=== PATIENT | male | born 1945 | race Caucasian/White ===

== ENCOUNTER 2018-03-06 08:10 | Inpatient (IN) | payer MEDICARE ==
[~2018-03-06] VITALS: Ht 182.9 cm; Wt 89.0 kg
[~2018-03-06 08:10] MED LIST: AMLO2.5T PO; ASPI-496 PO; ATOR20TA9 PO; CALC-126 PO; CALC625T68 PO; CYAN25003 SL; CYAN25009 PO; CYCL-259 PO; CYCL5TAB PO; FINA5TAB4 PO; FLUN25SP NS; HYDR-3237 PO; HYDR-3307 PO; LACT1CAP35 PO; MULT-658 PO; NITR0.4T28 SL; OMEG1CAP6 PO; OMEP-110 PO; POTA10TA11 PO; POTA10TA5 PO; TAMS-11 PO; TAMS0.4C2 PO; VALE445C2 PO; VITA150T PO; VITA400C43 PO
[2018-03-06] MEDS ORDERED: MECLIZINE CHEWABLE 25 MG TAB ONE (08:59)
[2018-03-06] MEDS ORDERED: MECLIZINE CHEWABLE 25 MG TAB PO ONE ×2 (09:00→13:00)
[2018-03-06 09:30] LABS: BASOPHILS # (AUTO) 0.02 x10^3/uL (0-0.1); BASOPHILS % (AUTO) 0 % (0-1); EOSINOPHILS # (AUTO) 0.02 x10^3/uL (0-0.4); EOSINOPHILS % (AUTO) 0 % (1-7); LYMPHOCYTES # (AUTO) 0.83 x10^3/uL (1-3.4); LYMPHOCYTES % (AUTO) 13 % (22-44); MD NO; MEAN CORPUSCULAR HGB CONC 33.5 g/dL (33.2-36.2); MEAN CORPUSCULAR VOLUME 95.3 fL (81-97); MEAN PLATELET VOLUME 8.8 fL (7.4-10.4); MONOCYTES # (AUTO) 0.44 x10^3/uL (0.2-0.8); MONOCYTES % (AUTO) 7 % (2-9); NEUTROPHILS # (AUTO) 5.16 x10^3/uL (1.8-6.8); NEUTROPHILS % (AUTO) 80 % (42-75); PLATELET COUNT 222 x10^3/uL (130-400); RED BLOOD COUNT 5.12 x10^6/uL (4.38-5.82); RED CELL DISTRIBUTION WIDTH 13.1 % (9.4-14.8)
[2018-03-06 09:43] LABS: ALANINE AMINOTRANSFERASE 32 U/L (12-78); ALBUMIN 4.1 g/dL (3.4-5.0); ANION GAP 7 mmol/L (5-15); CALCIUM 8.7 mg/dL (8.5-10.1); CHLORIDE 107 mmol/L (98-107); CREATININE 0.93 mg/dL (0.7-1.3)
[2018-03-06 09:48] LABS: ALKALINE PHOSPHATASE 61 U/L (45-117); TOTAL PROTEIN 7.2 g/dL (6.4-8.2); TROPONIN I < 0.015 ng/mL (0.000-0.045)
[2018-03-06] MEDS ORDERED: OMNIPAQUE 350 MG/ML, 100ML BOTTLE ONE (10:51)
[2018-03-06] MEDS ORDERED: ONDANSETRON 2MG/ML, 2ML IVPush PRN (13:30)
[2018-03-06] MEDS ORDERED: morphine SULFATE 10 MG/ML, 1ML IVPush PRN (13:30)
[2018-03-06] MEDS ORDERED: ACETAMINOPHEN 325 MG TABLET PO PRN (13:30)
[2018-03-06 14:05] LABS: FREE T4 (FREE THYROXINE) 0.82 ng/dL (0.76-1.46); THYROID STIMULATING HORMONE 1.02 mIU/L (0.358-3.740)
[2018-03-06 15:01] VITALS: BP 154/90
[2018-03-06] MEDS: POTASSIUM CHLORIDE 20 MEQ TAB.ER.PRT PO SCH (17:02)
[2018-03-06] MEDS: AMLODIPINE 2.5 MG TABLET PO SCH (17:03)
[2018-03-06] MEDS: HYDROcodone/APAP 5/325 TABLET PO SCH ×3 (17:04→21:37)
[2018-03-06] MEDS: CALCIUM/VITAMIN D3 250-125 TABLET PO SCH (17:04)
[2018-03-06] MEDS: FLUNISOLIDE NS SCH (17:04)
[2018-03-06] MEDS: CYCLOBENZAPRINE 10 MG TABLET PO SCH (17:04)
[2018-03-06] MEDS: CYANOCOBALAMIN 1,000 MCG TABLET PO SCH (17:04)
[2018-03-06] MEDS: MULTIVITAMIN 1 TABLET PO SCH (17:05)
[2018-03-06] MEDS: ENOXAPARIN 40 MG/0.4 ML SQ SCH (17:05)
[2018-03-06] MEDS: NITROGLYCERIN 0.4 MG BOTTLE (25 TABS) SL SCH ×2 (17:05→21:38)
[2018-03-06] MEDS: ASPIRIN 81 MG TABLET EC PO SCH (17:05)
[2018-03-06] MEDS: FINASTERIDE 5 MG TABLET PO SCH (17:05)
[2018-03-06] MEDS: LACTOBACILLUS CHEW TABLET PO SCH (17:05)
[2018-03-06] MEDS: MULTIVITS,STRESS FORMULA 1 TABLET PO SCH (17:05)
[2018-03-06] MEDS: OMEPRAZOLE 20 MG CAPSULE.DR PO SCH (17:06)
[2018-03-06 18:59] VITALS: BP 125/78
[2018-03-06 19:00] VITALS: BP 125/78
[2018-03-06 20:42] LABS: MICROSCOPIC NOT IND
[2018-03-06 20:48] LABS: CULTURE INDICATED? NO
[2018-03-06] MEDS: OMEGA-3/FISH OIL CAPSULE PO SCH (21:00)
[2018-03-06] MEDS: TAMSULOSIN 0.4 MG CAP.ER.24H PO SCH (21:37)
[2018-03-06] MEDS: MECLIZINE CHEWABLE 25 MG TAB PO PRN (21:37)
[2018-03-06] MEDS: ATORVASTATIN 20 MG TABLET PO SCH (21:37)
[2018-03-07 02:16] VITALS: BP 96/61
[2018-03-07] MEDS: HYDROcodone/APAP 5/325 TABLET PO SCH ×5 (06:00→22:13)
[2018-03-07 06:53] VITALS: BP 102/66
[2018-03-07] MEDS: OMEGA-3/FISH OIL CAPSULE PO SCH ×2 (09:00→21:00)
[2018-03-07] MEDS: MULTIVITAMIN 1 TABLET PO SCH (09:00)
[2018-03-07] MEDS: POTASSIUM CHLORIDE 20 MEQ TAB.ER.PRT PO SCH (09:45)
[2018-03-07] MEDS: ASPIRIN 81 MG TABLET EC PO SCH (09:45)
[2018-03-07] MEDS: TAMSULOSIN 0.4 MG CAP.ER.24H PO SCH ×2 (09:45→22:13)
[2018-03-07] MEDS: FINASTERIDE 5 MG TABLET PO SCH (09:46)
[2018-03-07] MEDS: AMLODIPINE 2.5 MG TABLET PO SCH (09:46)
[2018-03-07] MEDS: OMEPRAZOLE 20 MG CAPSULE.DR PO SCH (09:47)
[2018-03-07] MEDS: MECLIZINE CHEWABLE 25 MG TAB PO PRN ×3 (09:48→23:23)
[2018-03-07] MEDS: MULTIVITS,STRESS FORMULA 1 TABLET PO SCH (09:49)
[2018-03-07] MEDS: CYCLOBENZAPRINE 10 MG TABLET PO SCH (09:49)
[2018-03-07] MEDS: LACTOBACILLUS CHEW TABLET PO SCH (09:49)
[2018-03-07] MEDS: CYANOCOBALAMIN 1,000 MCG TABLET PO SCH (09:49)
[2018-03-07] MEDS: FLUNISOLIDE NS SCH (14:09)
[2018-03-07 15:44] VITALS: BP 116/76
[2018-03-07] MEDS: ENOXAPARIN 40 MG/0.4 ML SQ SCH (16:00)
[2018-03-07] MEDS ORDERED: OMEPRAZOLE 20 MG CAPSULE.DR PO SCH (16:30)
[2018-03-07 19:52] VITALS: BP 102/66
[2018-03-07] MEDS ORDERED: CYCLOBENZAPRINE 10 MG TABLET PO SCH (21:30)
[2018-03-07] MEDS: ATORVASTATIN 20 MG TABLET PO SCH (22:13)
[2018-03-08 03:31] VITALS: BP 104/71
[2018-03-08 03:32] VITALS: BP 104/71
[2018-03-08 07:55] VITALS: BP 117/61
[2018-03-08 07:56] VITALS: BP 117/67
[2018-03-08] MEDS: HYDROcodone/APAP 5/325 TABLET PO SCH (08:00)
[2018-03-08] MEDS: ASPIRIN 81 MG TABLET EC PO SCH (08:36)
[2018-03-08] MEDS: OMEGA-3/FISH OIL CAPSULE PO SCH (08:36)
[2018-03-08] MEDS: MULTIVITS,STRESS FORMULA 1 TABLET PO SCH (08:37)
[2018-03-08] MEDS: LACTOBACILLUS CHEW TABLET PO SCH (08:37)
[2018-03-08] MEDS: CALCIUM/VITAMIN D3 250-125 TABLET PO SCH (08:37)
[2018-03-08] MEDS: MULTIVITAMIN 1 TABLET PO SCH (08:37)
[2018-03-08] MEDS: CYANOCOBALAMIN 1,000 MCG TABLET PO SCH (08:38)
[2018-03-08] MEDS ORDERED: MIDAZOLAM 1 MG/ML, 5ML ONE (12:43)
[2018-03-08] MEDS ORDERED: FENTANYL PF 100 MCG/2ML ONE (12:43)
[2018-03-08] MEDS ORDERED: GADOBUTROL 10 MMOL/10 ML PFS ONE (13:25)
[2018-03-08] MEDS ORDERED: MECL-85 PO (13:54)
== END 2018-03-08 15:59 | disposition home or self-care (01) | DRG 149 ==
LOC: ED 09:04 → SUATTDRO 12:38 → EDIP 13:23 → 3NE 14:55
PROVIDERS: ADMIT Internal Medicine; ATTEND Internal Medicine
DX: R42 Dizziness and giddiness (principal); Z82.49 Family history of ischemic heart disease and other diseases of the circulatory system; I10 Essential (primary) hypertension; K21.9 Gastro-esophageal reflux disease without esophagitis; G62.9 Polyneuropathy, unspecified; G89.29 Other chronic pain; M54.9 Dorsalgia, unspecified; N40.0 Benign prostatic hyperplasia without lower urinary tract symptoms; Z80.51 Family history of malignant neoplasm of kidney; Z80.42 Family history of malignant neoplasm of prostate
CPT/HCPCS: 36415; 70450; 70498; 70553; 71045; 80053; 81003; 84439; 84443; 84484; 85025; 93005; 99156; 99157; 99285; A9585; J2250; J3010; Q9967

== ENCOUNTER → 2018-09-09 | Outpatient (CLI) | payer MEDICARE ==
[~2018-09-09] MED LIST changes: -AMLO2.5T PO; +AMLO2.5T3 PO; +ATOR20TA37 PO; -ATOR20TA9 PO; +CALC-118 PO; +CARB15DR59 EACHEYE; +CYAN25009 SL; +FISH1CAP PO; +FLUN25SP NAS; +LACT1CAP64 PO; +MECL-85 PO; +MULT-6 PO; +OMEP40CA6 PO; +POTA20PA25 PO; +PROP15DR EACHEYE; +VITA100C8 PO; +VITA1CAP7 PO
== END | disposition home or self-care (01) ==
LOC: STAR 13:05
PROVIDERS: ATTEND Surgery
DX: Z02.9 Encounter for administrative examinations, unspecified (principal)

== ENCOUNTER 2018-10-06 06:55 | Day surgery (SDC) | payer MEDICARE ==
[~2018-10-06] VITALS: Ht 182.9 cm; Wt 90.5 kg
[~2018-10-06 06:55] MED LIST changes: -AMLO2.5T3 PO; +AMLO2.5T5 PO; +BUPIVACAINE/PF-EPI 0.5% 1:200K ONE
[2018-10-06] MEDS ORDERED: LACTATED RINGERS 1,000 ML IV SCH (07:33)
[2018-10-06] MEDS ORDERED: GABAPENTIN 300 MG CAPSULE PO ONE (08:00)
[2018-10-06] MEDS ORDERED: ACETAMINOPHEN 500 MG TABLET PO ONE (08:00)
[2018-10-06 08:03] VITALS: BP 127/87
[2018-10-06] MEDS ORDERED: GLYCOPYRROLATE 0.2MG/1ML, 5ML ONE (08:26)
[2018-10-06] MEDS ORDERED: NEOSTIGMINE 1 MG/ML, 10ML ONE (08:26)
[2018-10-06] MEDS ORDERED: PROPOFOL 10 MG/ML, 20ML ONE (08:26)
[2018-10-06] MEDS ORDERED: CEFAZOLIN 1,000 MG ONE (08:26)
[2018-10-06] MEDS ORDERED: ROCURONIUM 10MG/ML,5ML ONE (08:26)
[2018-10-06] MEDS ORDERED: BUPIVACAINE/PF-EPI 0.5% 1:200K ONE (09:00)
[2018-10-06] MEDS ORDERED: FENTANYL PF 250 MCG/5ML ONE (09:20)
[2018-10-06] MEDS ORDERED: MIDAZOLAM 1 MG/ML, 2ML ONE (09:20)
[2018-10-06] MEDS ORDERED: ONDANSETRON ODT 8 MG PO PRN (09:30)
[2018-10-06] MEDS ORDERED: PROMETHAZINE 25 MG/ML, 1ML IM PRN ×2 (09:30)
[2018-10-06] MEDS ORDERED: MORPHINE SULFATE 4 MG/ML, 1ML IVPush PRN (09:30)
[2018-10-06] MEDS ORDERED: PROMETHAZINE 25 MG/ML, 1ML IV PRN (09:30)
[2018-10-06] MEDS ORDERED: OXYcodone 5 MG/5 ML ORAL.SOL UDC PO PRN (09:30)
[2018-10-06] MEDS ORDERED: PROMETHAZINE 12.5 MG SUPP PR PRN (09:30)
[2018-10-06] MEDS ORDERED: PROMETHAZINE 25 MG SUPP PR PRN (09:30)
[2018-10-06] MEDS ORDERED: LABETALOL 5MG/ML, 20ML IV PRN (09:30)
[2018-10-06] MEDS ORDERED: ONDANSETRON 2MG/ML, 2ML IV PRN (09:30)
[2018-10-06] MEDS ORDERED: FENTANYL PF 100 MCG/2ML IV PRN (09:30)
[2018-10-06] MEDS ORDERED: hydrALAzine 20 MG/ML, 1ML IV PRN (09:30)
[2018-10-06] MEDS ORDERED: MEPERIDINE/PF 25MG/0.5ML IVPush PRN (09:30)
[2018-10-06] MEDS ORDERED: HYDROmorphone 2 MG/ML, 1ML IVPush PRN (09:30)
[2018-10-06] MEDS ORDERED: ONDANSETRON 2MG/ML, 2ML ONE (09:46)
[2018-10-06] MEDS ORDERED: DEXAMETHASONE 4 MG/ML, 1ML ONE ×2 (09:46)
[2018-10-06] MEDS ORDERED: KETOROLAC 30 MG/1 ML ONE (09:47)
[2018-10-06] MEDS ORDERED: FENTANYL PF 100 MCG/2ML ONE ×2 (10:39→11:17)
[2018-10-06] MEDS ORDERED: OXYcodone 5 MG/5 ML ORAL.SOL UDC ONE (11:17)
[2018-10-06] MEDS ORDERED: OXYcodone/APAP 5/325MG TABLET ONE (15:47)
[2018-10-06] MEDS ORDERED: OXYcodone/APAP 5/325MG TABLET PO PRN (16:00)
== END 2018-10-06 18:40 | disposition home or self-care (01) ==
LOC: OUT 06:55
PROVIDERS: ATTEND Surgery
DX: K40.91 Unilateral inguinal hernia, without obstruction or gangrene, recurrent (principal); K40.90 Unilateral inguinal hernia, without obstruction or gangrene, not specified as recurrent; I10 Essential (primary) hypertension; E78.5 Hyperlipidemia, unspecified; Z88.1 Allergy status to other antibiotic agents; Z88.8 Allergy status to other drugs, medicaments and biological substances; Z98.890 Other specified postprocedural states; Z87.39 Personal history of other diseases of the musculoskeletal system and connective tissue; Z85.828 Personal history of other malignant neoplasm of skin
CPT/HCPCS: 49650; 49651; C1781; J0690; J1100; J1885; J2250; J2405; J2704; J2710; J3010; J3490; J7120

== ENCOUNTER 2018-10-10 17:25 | Emergency (ER) | payer MEDICARE ==
[~2018-10-10] VITALS: Ht 182.9 cm; Wt 92.2 kg
[~2018-10-10 17:25] MED LIST changes: -BUPIVACAINE/PF-EPI 0.5% 1:200K ONE
--- NOTE | 2018-10-10 17:41 | NUR ---
PT STATED THAT HE HAD DOUBLE HERNIA SURGERY ON THURSDAY AND NOW IS HAVING TROUBLE URINATING AND BMS. URINATING A LITTLE EVERY 20 MINUTES, BURNING WITH URINATION AND RIGHT FLANK PAIN. C/O LEAKING BM EVERY 20 MINUTES. REPORTS BEING SWEATY, WHITE, AND WEAK. PT IS ALERT, ORIENTED, WITH NAD. PT IS CONNECTED TO THE MONITOR. CALL LIGHT WITHIN REACH.
--- NOTE | 2018-10-10 18:28 | NUR ---
POST PLACED, 1100 URINE DRAINED INTO POST BAG.
[2018-10-10 18:37] LABS: MICROSCOPIC INDICATED
[2018-10-10 18:40] LABS: ALBUMIN 4.2 g/dL (3.4-5.0); ANION GAP 9 mmol/L (5-15); CALCIUM 9.4 mg/dL (8.5-10.1); CHLORIDE 106 mmol/L (98-107); CREATININE 0.95 mg/dL (0.7-1.3)
[2018-10-10 18:41] LABS: BASOPHILS # (AUTO) 0.02 x10^3/uL (0-0.1); BASOPHILS % (AUTO) 0 % (0-1); EOSINOPHILS # (AUTO) 0.18 x10^3/uL (0-0.4); EOSINOPHILS % (AUTO) 2 % (1-7); LYMPHOCYTES # (AUTO) 0.84 x10^3/uL (1-3.4); LYMPHOCYTES % (AUTO) 10 % (22-44); MD NO; MEAN CORPUSCULAR HEMOGLOBIN 32.6 pg (27.5-34.5); MEAN CORPUSCULAR HGB CONC 33.8 g/dL (33.2-36.2); MEAN CORPUSCULAR VOLUME 96.6 fL (81-97); MEAN PLATELET VOLUME 8.8 fL (7.4-10.4); MONOCYTES # (AUTO) 0.61 x10^3/uL (0.2-0.8); MONOCYTES % (AUTO) 7 % (2-9); NEUTROPHILS % (AUTO) 81 % (42-75); PLATELET COUNT 235 x10^3/uL (130-400); RED BLOOD COUNT 4.78 x10^6/uL (4.38-5.82); RED CELL DISTRIBUTION WIDTH 13.2 % (9.4-14.8)
[2018-10-10 18:46] LABS: CULTURE INDICATED? NO
--- NOTE | 2018-10-10 18:58 | NUR ---
REPORT GIVEN TO LLUVIA ZHU
[2018-10-10 19:34] VITALS: BP 116/86
== END 2018-10-10 19:35 | disposition home or self-care (01) ==
LOC: ED 18:18
DX: N40.1 Benign prostatic hyperplasia with lower urinary tract symptoms (principal); R33.8 Other retention of urine; R10.9 Unspecified abdominal pain; E78.5 Hyperlipidemia, unspecified
CPT/HCPCS: 36415; 51702; 80048; 81001; 82040; 85025; 93005; 99284

== ENCOUNTER 2019-02-18 10:07 | Outpatient (CLI) | payer MEDICARE | END 2019-02-18 23:59 | disposition home or self-care (01) | LOC: CFH 10:07 | PROVIDERS: ATTEND Physician Assistant | DX: K44.9 Diaphragmatic hernia without obstruction or gangrene (principal); K57.30 Diverticulosis of large intestine without perforation or abscess without bleeding; N28.89 Other specified disorders of kidney and ureter; R93.2 Abnormal findings on diagnostic imaging of liver and biliary tract | CPT/HCPCS: 78815; A9552 ==

== ENCOUNTER → 2019-02-21 | Outpatient (CLI) | payer MEDICARE | END | disposition home or self-care (01) | LOC: CFH 16:01 | PROVIDERS: ATTEND Physician Assistant | DX: K40.90 Unilateral inguinal hernia, without obstruction or gangrene, not specified as recurrent (principal) | CPT/HCPCS: 76857 ==

== ENCOUNTER 2019-08-10 09:49 | Day surgery (SDC) | payer MEDICARE ==
[~2019-08-10] VITALS: Ht 182.9 cm; Wt 87.6 kg
[~2019-08-10 09:49] MED LIST changes: +CHOL200074 PO; +CYAN-27 PO; -HYDR-3307 PO; +HYDR-36 PO; +LACT1CAP37 PO; +OMEP40CA42 PO; -OMEP40CA6 PO
[2019-08-10] MEDS ORDERED: LACTATED RINGERS 1,000 ML IV SCH (10:09)
[2019-08-10 10:16] VITALS: BP 153/94
[2019-08-10] MEDS ORDERED: LIDOCAINE-MPF 1%, 2ML INFIL ONE (10:30)
[2019-08-10] MEDS ORDERED: MIDAZOLAM 1 MG/ML, 2ML ONE (10:54)
[2019-08-10] MEDS ORDERED: PROPOFOL 50 ML ONE (10:54)
[2019-08-10] MEDS ORDERED: OXYcodone 5 MG/5 ML ORAL.SOL UDC PO PRN (11:30)
[2019-08-10] MEDS ORDERED: HYDROmorphone 2 MG/ML, 1ML IVPush PRN (11:30)
[2019-08-10] MEDS ORDERED: LABETALOL 5MG/ML, 20ML IV PRN (11:30)
[2019-08-10] MEDS ORDERED: MEPERIDINE/PF 25MG/ML,1ML IVPush PRN (11:30)
[2019-08-10] MEDS ORDERED: FENTANYL PF 100 MCG/2ML IV PRN (11:30)
[2019-08-10] MEDS ORDERED: ACETAMINOPHEN 325 MG TABLET PO PRN (11:30)
[2019-08-10] MEDS ORDERED: ONDANSETRON 2MG/ML, 2ML IV PRN (11:30)
== END 2019-08-10 13:00 | disposition home or self-care (01) ==
LOC: OUT 09:49
PROVIDERS: ATTEND Internal Medicine
DX: K21.9 Gastro-esophageal reflux disease without esophagitis (principal); K44.9 Diaphragmatic hernia without obstruction or gangrene; K57.30 Diverticulosis of large intestine without perforation or abscess without bleeding; A63.0 Anogenital (venereal) warts; I10 Essential (primary) hypertension; R33.9 Retention of urine, unspecified; Z79.891 Long term (current) use of opiate analgesic
CPT/HCPCS: 43235; 45380; 88305; 93005; J2250; J2704; J7120

== ENCOUNTER → 2019-10-26 | Outpatient (CLI) | payer MEDICARE | END | disposition home or self-care (01) | LOC: RAD 12:32 | PROVIDERS: ATTEND Internal Medicine | DX: K44.0 Diaphragmatic hernia with obstruction, without gangrene (principal); K22.2 Esophageal obstruction | CPT/HCPCS: 74220 ==

== ENCOUNTER → 2019-11-21 | Outpatient (CLI) | payer MEDICARE ==
[~2019-11-21] MED LIST changes: +PROP10DR3 EACHEYE
== END | disposition home or self-care (01) ==
LOC: STAR 13:02
PROVIDERS: ATTEND Thoracic Surgery (Cardiothoracic Vascular Surgery)
DX: Z01.818 Encounter for other preprocedural examination (principal); K44.9 Diaphragmatic hernia without obstruction or gangrene
CPT/HCPCS: 93005

== ENCOUNTER 2019-11-30 07:59 | Observation (INO) | payer MEDICARE ==
[~2019-11-30] VITALS: Ht 182.9 cm; Wt 92.6 kg
[~2019-11-30 07:59] MED LIST changes: +BUPIVACAINE/PF-EPI 0.5% 1:200K ONE
[2019-11-30] MEDS ORDERED: hydrALAzine 20 MG/ML, 1ML IV PRN ×2 (08:30→12:00)
[2019-11-30] MEDS ORDERED: ONDANSETRON 2MG/ML, 2ML IV PRN (08:30)
[2019-11-30] MEDS ORDERED: HYDROmorphone 2 MG/ML, 1ML IVPush PRN (08:30)
[2019-11-30] MEDS ORDERED: OXYcodone 5 MG/5 ML ORAL.SOL UDC PO PRN (08:30)
[2019-11-30] MEDS ORDERED: MEPERIDINE/PF 25MG/ML,1ML IVPush PRN (08:30)
[2019-11-30] MEDS ORDERED: EPHEDRINE 50 MG/ML, 1ML IVPush PRN (08:30)
[2019-11-30] MEDS ORDERED: LABETALOL 5MG/ML, 20ML IV PRN (08:30)
[2019-11-30] MEDS ORDERED: PROMETHAZINE 25 MG/ML, 1ML IV PRN (08:30)
[2019-11-30] MEDS ORDERED: LACTATED RINGERS 1,000 ML IV SCH (08:42)
[2019-11-30] MEDS ORDERED: ACETAMINOPHEN 500 MG TABLET PO ONE (09:00)
[2019-11-30 09:06] VITALS: BP 121/81
[2019-11-30] MEDS ORDERED: FENTANYL PF 250 MCG/5ML ONE (10:08)
[2019-11-30] MEDS ORDERED: GLYCOPYRROLATE 0.2MG/1ML, 5ML ONE (10:17)
[2019-11-30] MEDS ORDERED: SODIUM CHLORIDE 0.9% PF 10ML ONE (10:17)
[2019-11-30] MEDS ORDERED: ONDANSETRON 2MG/ML, 2ML ONE (10:17)
[2019-11-30] MEDS ORDERED: ROCURONIUM 10MG/ML,5ML ONE (10:17)
[2019-11-30] MEDS ORDERED: LIDOCAINE-MPF 2% ,5ML ONE (10:17)
[2019-11-30] MEDS ORDERED: DEXAMETHASONE 4 MG/ML, 1ML ONE (10:17)
[2019-11-30] MEDS ORDERED: PROPOFOL 10 MG/ML, 20ML ONE (10:17)
[2019-11-30] MEDS ORDERED: SUCCINYLCHOLINE 20 MG/ML, 10ML ONE (10:17)
[2019-11-30] MEDS ORDERED: CEFAZOLIN 1,000 MG ONE (10:17)
[2019-11-30] MEDS ORDERED: NEOSTIGMINE 1 MG/ML, 10ML ONE (10:17)
[2019-11-30] MEDS ORDERED: KETOROLAC 30 MG/1 ML ONE (10:27)
[2019-11-30] MEDS ORDERED: EPHEDRINE 50 MG/ML, 1ML ONE (10:40)
[2019-11-30] MEDS ORDERED: MIDAZOLAM 1 MG/ML, 2ML ONE (11:34)
[2019-11-30] MEDS: FENTANYL PF 100 MCG/2ML IV PRN ×3 (11:45→13:00)
[2019-11-30] MEDS ORDERED: OXYcodone 5 MG/5 ML ORAL.SOL UDC ONE (11:48)
[2019-11-30] MEDS ORDERED: FENTANYL PF 100 MCG/2ML ONE (11:48)
[2019-11-30] MEDS ORDERED: NITROGLYCERIN SINGLE TAB 0.4 MG SL PRN (12:00)
[2019-11-30] MEDS ORDERED: LORazepam 2 MG/ML, 1ML IV PRN (12:00)
[2019-11-30] MEDS ORDERED: morphine SULFATE 10 MG/ML, 1ML IV PRN (12:00)
[2019-11-30] MEDS ORDERED: ENALAPRILAT 1.25 MG/ML, 2ML IV PRN (12:00)
[2019-11-30] MEDS ORDERED: ONDANSETRON 2MG/ML, 2ML IVPush PRN (12:00)
[2019-11-30] MEDS ORDERED: ALBUTEROL HFA 90 MCG/SPRAY ONE (12:20)
[2019-11-30] MEDS ORDERED: MIDAZOLAM 1 MG/ML, 2ML IV PRN (12:30)
[2019-11-30] MEDS: FAMOTIDINE 20 MG/2 ML IV SCH (12:30)
[2019-11-30] MEDS: HYDROcodone/APAP 7.5-325MG/15ML UDC PO PRN ×2 (18:16→20:26)
[2019-11-30 20:00] VITALS: BP 136/86
[2019-11-30] MEDS: LACTATED RINGERS 1,000 ML IV SCH (20:28)
[2019-11-30] MEDS: KETOROLAC 30 MG/1 ML IV PRN (21:37)
[2019-11-30 23:53] VITALS: BP 100/70
[2019-12-01] MEDS: FAMOTIDINE 20 MG/2 ML IV SCH (01:36)
[2019-12-01] MEDS: HYDROcodone/APAP 7.5-325MG/15ML UDC PO PRN ×3 (01:43→09:15)
[2019-12-01 03:34] VITALS: BP 111/74
[2019-12-01] MEDS: KETOROLAC 30 MG/1 ML IV PRN ×2 (03:34→09:15)
[2019-12-01] MEDS: LACTATED RINGERS 1,000 ML IV SCH (03:47)
[2019-12-01 08:05] VITALS: BP 121/87
[2019-12-01] MEDS ORDERED: ENOXAPARIN 40 MG/0.4 ML SQ SCH (09:00)
[2019-12-01] MEDS ORDERED: TAMSULOSIN 0.4 MG CAP.ER.24H PO SCH (09:00)
[2019-12-01 11:24] VITALS: BP 123/78
[2019-12-01] MEDS ORDERED: AMLODIPINE 2.5 MG TABLET PO SCH (21:00)
== END 2019-12-01 11:50 | disposition home or self-care (01) ==
LOC: OUT 07:59 → ORIP 11:34 → 3WST 14:00 → DCLOUNGE 12-01 11:28
PROVIDERS: ADMIT Thoracic Surgery (Cardiothoracic Vascular Surgery); ATTEND Thoracic Surgery (Cardiothoracic Vascular Surgery)
DX: K44.9 Diaphragmatic hernia without obstruction or gangrene (principal); M19.90 Unspecified osteoarthritis, unspecified site; N40.0 Benign prostatic hyperplasia without lower urinary tract symptoms; E78.00 Pure hypercholesterolemia, unspecified; G89.4 Chronic pain syndrome; N40.2 Nodular prostate without lower urinary tract symptoms; Z79.899 Other long term (current) drug therapy; Z79.82 Long term (current) use of aspirin
CPT/HCPCS: 43282; 71045; 94640; 96372; 96374; 96375; 96376; C1781; G0378; J0330; J0690; J1100; J1650; J1885; J2250; J2405; J2704; J2710; J3010; J3490; J7120

== ENCOUNTER → 2020-02-02 | Outpatient (CLI) | payer MEDICARE ==
[~2020-02-02] MED LIST changes: -BUPIVACAINE/PF-EPI 0.5% 1:200K ONE; +OMNIPAQUE 350 MG/ML, 150 ML BOTTLE ONE
== END | disposition home or self-care (01) ==
LOC: CFH 10:05
PROVIDERS: ATTEND Physician Assistant
DX: K76.0 Fatty (change of) liver, not elsewhere classified (principal); K57.30 Diverticulosis of large intestine without perforation or abscess without bleeding; N28.1 Cyst of kidney, acquired; K76.89 Other specified diseases of liver; N40.0 Benign prostatic hyperplasia without lower urinary tract symptoms; N43.3 Hydrocele, unspecified
CPT/HCPCS: 74178; 82565; Q9967

== ENCOUNTER → 2020-08-02 | Outpatient (CLI) | payer MEDICARE ==
[~2020-08-02] MED LIST changes: +ACET-1600 PO; +ASPI81TA45 PO; +ATOR40TA78 PO; +HYDR-3240 PO; +HYDR-3246 PO; -HYDR-36 PO; +METHYL B12 PO; +NAPR220C2 PO; -OMNIPAQUE 350 MG/ML, 150 ML BOTTLE ONE; +POTA20TA89 PO
== END | disposition home or self-care (01) ==
LOC: STAR 10:01
PROVIDERS: ATTEND Thoracic Surgery (Cardiothoracic Vascular Surgery)
DX: Z01.818 Encounter for other preprocedural examination (principal); K44.9 Diaphragmatic hernia without obstruction or gangrene; R94.31 Abnormal electrocardiogram [ECG] [EKG]
CPT/HCPCS: 93005

== ENCOUNTER → 2020-08-30 | Outpatient (CLI) | payer MEDICARE ==
[~2020-08-30] MED LIST changes: +VITA100C10 PO; -VITA100C8 PO
== END | disposition home or self-care (01) ==
LOC: STAR 10:34
PROVIDERS: ATTEND Anesthesiology
DX: Z20.828 Contact with and (suspected) exposure to other viral communicable diseases (principal)
CPT/HCPCS: 87635

== ENCOUNTER 2020-09-05 08:25 | Observation (INO) | payer MEDICARE ==
[~2020-09-05] VITALS: Ht 182.9 cm; Wt 88.6 kg
[2020-09-05] MEDS ORDERED: FENTANYL PF 250 MCG/5ML ONE ×2 (09:21→10:19)
[2020-09-05 09:28] VITALS: BP 121/88
[2020-09-05] MEDS ORDERED: BUPIVACAINE/PF 0.5% ONE (09:52)
[2020-09-05] MEDS ORDERED: EPINEPHRINE 1 MG/ML, 1ML ONE (09:52)
[2020-09-05] MEDS ORDERED: GLYCOPYRROLATE 0.2MG/1ML, 5ML ONE (09:57)
[2020-09-05] MEDS ORDERED: ROCURONIUM 10 MG/ML,10ML ONE (09:57)
[2020-09-05] MEDS ORDERED: CEFAZOLIN 1,000 MG ONE (09:57)
[2020-09-05] MEDS ORDERED: ONDANSETRON 2MG/ML, 2ML ONE (09:57)
[2020-09-05] MEDS ORDERED: SUCCINYLCHOLINE 20 MG/ML, 10ML ONE (09:57)
[2020-09-05] MEDS ORDERED: PROPOFOL 10 MG/ML, 20ML ONE (09:57)
[2020-09-05] MEDS ORDERED: NEOSTIGMINE 1 MG/ML, 10ML ONE (09:57)
[2020-09-05] MEDS ORDERED: DEXAMETHASONE 4 MG/ML, 1ML ONE (09:57)
[2020-09-05] MEDS ORDERED: LACTATED RINGERS 1,000 ML IV SCH (10:00)
[2020-09-05] MEDS ORDERED: MEPERIDINE/PF 25MG/0.5ML IVPush PRN (12:00)
[2020-09-05] MEDS ORDERED: PROMETHAZINE 25 MG/ML, 1ML IM PRN (12:00)
[2020-09-05] MEDS ORDERED: ACETAMINOPHEN 325 MG TABLET PO PRN (12:00)
[2020-09-05] MEDS ORDERED: PROMETHAZINE 25 MG/ML, 1ML IVPush PRN (12:00)
[2020-09-05] MEDS ORDERED: PROMETHAZINE 12.5 MG SUPP PR PRN (12:00)
[2020-09-05] MEDS ORDERED: METHOCARBAMOL 1,000 MG in DEXTROSE 5% 100 ML IV PRN (12:00)
[2020-09-05] MEDS ORDERED: LABETALOL 5MG/ML, 20ML IV PRN (12:00)
[2020-09-05] MEDS ORDERED: ONDANSETRON 2MG/ML, 2ML IVPush PRN ×2 (12:00)
[2020-09-05] MEDS ORDERED: hydrALAzine 20 MG/ML, 1ML IV PRN ×2 (12:00)
[2020-09-05] MEDS ORDERED: NITROGLYCERIN SINGLE TAB 0.4 MG SL PRN (12:00)
[2020-09-05] MEDS ORDERED: EPHEDRINE 50 MG/ML, 1ML IM PRN (12:00)
[2020-09-05] MEDS ORDERED: HYDROmorphone 1 MG/ML, 1ML INJ IVPush PRN (12:00)
[2020-09-05] MEDS ORDERED: EPHEDRINE 50 MG/ML, 1ML IVPush PRN (12:00)
[2020-09-05] MEDS ORDERED: ENALAPRILAT 1.25 MG/ML, 2ML IV PRN (12:00)
[2020-09-05] MEDS ORDERED: LORazepam 2 MG/ML, 1ML IVPush PRN (12:00)
[2020-09-05] MEDS ORDERED: OXYcodone 5 MG/5 ML ORAL.SOL UDC PO PRN (12:00)
[2020-09-05] MEDS ORDERED: FENTANYL PF 100 MCG/2ML ONE (12:18)
[2020-09-05] MEDS ORDERED: LORazepam 2 MG/ML, 1ML ONE (12:19)
[2020-09-05] MEDS: FENTANYL PF 100 MCG/2ML IV PRN ×2 (12:24→12:29)
[2020-09-05] MEDS ORDERED: ACETAMINOPHEN 650 MG/20.3 ML UDC ONE (12:43)
[2020-09-05] MEDS ORDERED: OXYcodone 5 MG/5 ML ORAL.SOL UDC ONE (12:43)
[2020-09-05] MEDS: FAMOTIDINE 20 MG/2 ML IV SCH (14:42)
[2020-09-05] MEDS: morphine SULFATE 10 MG/ML, 1ML IV PRN ×2 (14:42→15:41)
[2020-09-05] MEDS: LACTATED RINGERS 1,000 ML IV SCH ×2 (14:43→23:00)
[2020-09-05] MEDS: HYDROcodone/APAP 7.5-325MG/15ML UDC PO PRN (17:52)
[2020-09-05 20:15] VITALS: BP 119/76
[2020-09-06] MEDS: HYDROcodone/APAP 7.5-325MG/15ML UDC PO PRN ×2 (00:04→06:09)
[2020-09-06] MEDS: FAMOTIDINE 20 MG/2 ML IV SCH (02:29)
[2020-09-06 02:34] VITALS: BP 107/70
[2020-09-06] MEDS: LACTATED RINGERS 1,000 ML IV SCH (05:46)
[2020-09-06 06:38] VITALS: BP 113/78
[2020-09-06] MEDS ORDERED: TAMSULOSIN 0.4 MG CAP.ER.24H PO SCH (09:00)
[2020-09-06] MEDS ORDERED: ENOXAPARIN 40 MG/0.4 ML SQ SCH (09:00)
[2020-09-06] MEDS ORDERED: AMLODIPINE 2.5 MG TABLET PO SCH (09:00)
== END 2020-09-06 10:50 | disposition home or self-care (01) ==
LOC: OUT 08:25 → ORIP 11:41 → 4NE 14:13 → DCLOUNGE 09-06 10:42
PROVIDERS: ADMIT Thoracic Surgery (Cardiothoracic Vascular Surgery); ATTEND Thoracic Surgery (Cardiothoracic Vascular Surgery)
DX: K44.9 Diaphragmatic hernia without obstruction or gangrene (principal); I10 Essential (primary) hypertension; Z79.899 Other long term (current) drug therapy
CPT/HCPCS: 43280; 96361; 96372; 96374; 96375; 96376; G0378; J0171; J0330; J0690; J1100; J1650; J2060; J2270; J2405; J2704; J2710; J2800; J3010; J7120; S0020

== ENCOUNTER 2020-12-02 03:49 | Emergency (ER) | payer MEDICARE ==
[~2020-12-02] VITALS: Ht 182.9 cm; Wt 89.5 kg
[~2020-12-02 03:49] MED LIST changes: -CYCL-259 PO; +CYCL10TA2 PO; +HYDR-1067 PO; -HYDR-3240 PO; -HYDR-3246 PO; +HYDR-3248 PO
[2020-12-02] MEDS ORDERED: ONDANSETRON 2MG/ML, 2ML ONE (04:13)
[2020-12-02] MEDS ORDERED: MORPHINE SULFATE 4 MG/ML, 1ML ONE (04:13)
[2020-12-02 04:30] LABS: ALANINE AMINOTRANSFERASE 36 U/L (12-78); ALBUMIN 4.1 g/dL (3.4-5.0); ANION GAP 7 mmol/L (5-15); CALCIUM 8.6 mg/dL (8.5-10.1); CHLORIDE 110 mmol/L (98-107); CREATININE 1.17 mg/dL (0.7-1.3)
[2020-12-02] MEDS ORDERED: ONDANSETRON 2MG/ML, 2ML IVPush ONE (04:30)
[2020-12-02] MEDS ORDERED: MORPHINE SULFATE 4 MG/ML, 1ML IVPush PRN (04:30)
[2020-12-02 04:34] LABS: BASOPHILS % (AUTO) 0 % (0-1); EOSINOPHILS % (AUTO) 9 % (1-7); LYMPHOCYTES % (AUTO) 27 % (22-44); MEAN CORPUSCULAR HEMOGLOBIN 32.6 pg (27.5-34.5); MEAN PLATELET VOLUME 8.4 fL (7.4-10.4); MONOCYTES % (AUTO) 11 % (2-9); NEUTROPHILS % (AUTO) 53 % (42-75); PLATELET COUNT 264 x10^3/uL (130-400); RED BLOOD COUNT 4.89 x10^6/uL (4.38-5.82); RED CELL DISTRIBUTION WIDTH 13.9 % (9.4-14.8)
[2020-12-02 04:35] LABS: ALKALINE PHOSPHATASE 66 U/L (45-117); BILIRUBIN,TOTAL 0.6 mg/dL (0.2-1.0); TOTAL PROTEIN 7.2 g/dL (6.4-8.2); TROPONIN I < 0.015 ng/mL (0.000-0.045)
[2020-12-02] MEDS ORDERED: HYDROmorphone 1 MG/ML, 1ML INJ ONE (04:35)
[2020-12-02 04:37] LABS: MD NO
[2020-12-02] MEDS ORDERED: HYDROmorphone 1 MG/ML, 1ML INJ IV ONE (05:00)
[2020-12-02] MEDS ORDERED: KETOROLAC 30 MG/1 ML IVPush ONE (05:30)
[2020-12-02] MEDS ORDERED: KETOROLAC 30 MG/1 ML ONE (05:30)
--- NOTE | 2020-12-02 05:35 | NUR ---
pt still in quite a bit of pain, medicated per emar, provided icepack on left side of back, no other needs at this time
[2020-12-02 05:36] VITALS: BP 124/77
[2020-12-02 05:38] LABS: MICROSCOPIC INDICATED
[2020-12-02] MEDS ORDERED: CEFDINIR 300 MG CAPSULE ONE (05:45)
[2020-12-02] MEDS ORDERED: CEFDINIR 300 MG CAPSULE PO/NG ONE (06:00)
[2020-12-03] MEDS ORDERED: KETO10TA PO (14:11)
== END 2020-12-02 06:11 | disposition home or self-care (01) ==
LOC: ED 06:02
DX: N20.1 Calculus of ureter (principal); R11.2 Nausea with vomiting, unspecified; R31.9 Hematuria, unspecified; I10 Essential (primary) hypertension; K21.9 Gastro-esophageal reflux disease without esophagitis; E78.5 Hyperlipidemia, unspecified
CPT/HCPCS: 36415; 74176; 80053; 81001; 83690; 84484; 85025; 87086; 96374; 96375; 99284; J1170; J1885; J2270; J2405

== ENCOUNTER → 2021-02-13 | Outpatient (CLI) | payer MEDICARE ==
[~2021-02-13] MED LIST changes: -HYDR-1067 PO; +HYDR-2214 PO; +KETO10TA PO; +POLY1DRO EACHEYE
== END | disposition home or self-care (01) ==
LOC: STAR 14:32
PROVIDERS: ATTEND Internal Medicine
DX: Z01.818 Encounter for other preprocedural examination (principal); A63.0 Anogenital (venereal) warts; R94.31 Abnormal electrocardiogram [ECG] [EKG]; Z20.822 Contact with and (suspected) exposure to COVID-19
CPT/HCPCS: 93005; U0003; U0005

== ENCOUNTER 2021-02-19 12:30 | Day surgery (SDC) | payer MEDICARE ==
[~2021-02-19] VITALS: Ht 182.9 cm; Wt 85.9 kg
[~2021-02-19 12:30] MED LIST changes: -LACT1CAP37 PO; +LACT1CAP47 PO; -OMEP40CA42 PO; +OMEP40CA8 PO
[2021-02-19 13:17] VITALS: BP 120/82
[2021-02-19] MEDS ORDERED: LACTATED RINGERS 1,000 ML IV SCH (13:30)
[2021-02-19] MEDS ORDERED: PROPOFOL 10 MG/ML, 20ML ONE (14:17)
[2021-02-19] MEDS ORDERED: METHOCARBAMOL 1,000 MG in DEXTROSE 5% 100 ML IV PRN (15:00)
[2021-02-19] MEDS ORDERED: ACETAMINOPHEN 325 MG TABLET PO PRN (15:00)
[2021-02-19] MEDS ORDERED: LORazepam 2 MG/ML, 1ML IVPush PRN (15:00)
[2021-02-19] MEDS ORDERED: OXYcodone 5 MG/5 ML ORAL.SOL UDC PO PRN (15:00)
[2021-02-19] MEDS ORDERED: METOPROLOL 1 MG/ML, 5ML IV PRN (15:00)
[2021-02-19] MEDS ORDERED: FENTANYL PF 100 MCG/2ML IV PRN (15:00)
[2021-02-19] MEDS ORDERED: LABETALOL 5MG/ML, 20ML IV PRN (15:00)
[2021-02-19] MEDS ORDERED: PROMETHAZINE 25 MG SUPP PR PRN (15:00)
[2021-02-19] MEDS ORDERED: ONDANSETRON 2MG/ML, 2ML IVPush PRN (15:00)
[2021-02-19] MEDS ORDERED: PROMETHAZINE 25 MG/ML, 1ML IVPush PRN (15:00)
== END 2021-02-19 15:35 | disposition home or self-care (01) ==
LOC: OUT 12:30
PROVIDERS: ATTEND Internal Medicine
DX: K64.8 Other hemorrhoids (principal); K57.30 Diverticulosis of large intestine without perforation or abscess without bleeding; K62.5 Hemorrhage of anus and rectum; I10 Essential (primary) hypertension; E78.5 Hyperlipidemia, unspecified; M19.90 Unspecified osteoarthritis, unspecified site; Z88.1 Allergy status to other antibiotic agents; Z88.8 Allergy status to other drugs, medicaments and biological substances; Z98.890 Other specified postprocedural states; Z95.5 Presence of coronary angioplasty implant and graft; Z98.52 Vasectomy status; Z79.899 Other long term (current) drug therapy; Z79.82 Long term (current) use of aspirin
CPT/HCPCS: 45378; J2704; J7120